=== PATIENT | male | born 1990 | race Caucasian/White ===

== ENCOUNTER 2017-08-06 22:31 | Emergency (ER) | payer SELFPAY ==
[~2017-08-06] VITALS: Ht 165.1 cm; Wt 83.9 kg
--- NOTE | 2017-08-06 22:44 | PHYS DOC ---
Past Medical History Past Medical History: No Pertinent History Past Surgical History: Other Additional Past Surgical Histo: Bilateral wrists. Smokin Pack Per Day Alcohol Use: None Drug Use: None Adult General Chief Complaint Chief Complaint: SORE THROAT HPI HPI Patient is a 27 year old male presents to the emergency department one-week history of sore throat. Reports he has had an intermittent cough. No fever. Really taking foods and fluids. He states today he looked at his throat and he saw white patches and that prompted him to come to the emergency department. Review of Systems Review of Systems Constitutional: Denies fever or chills [] Eyes: Denies change in visual acuity, redness, or eye pain [] HENT: Denies nasal congestion, complain of sore throat Respiratory: Intermittent cough, productive Cardiovascular: No chest pain GI: Denies abdominal pain, nausea, vomiting, bloody stools or diarrhea [] : Denies dysuria or hematuria [] Musculoskeletal: Denies back pain or joint pain [] Integument: Denies rash or skin lesions [] Neurologic: Denies headache, focal weakness or sensory changes [] Endocrine: Denies polyuria or polydipsia [] Allergies Allergies Allergies Coded Allergies Type Severity Reaction Last Updated Verified acetaminophen Adverse Reaction Intermediate Nausea and Vomiting 08/08/14 Yes Physical Exam Physical Exam Constitutional: Well developed, well nourished, no acute distress, non-toxic appearance. [] HENT: Normocephalic, atraumatic, bilateral external ears normal, oropharynx moist, a pharynx with erythema, white exudate left tonsil, nose normal. [] Eyes: PERRLA, EOMI, conjunctiva normal, no discharge. [] Neck: Normal range of motion, no tenderness, supple without lymphadenopathy, no stridor. [] Cardiovascular:Heart rate regular rhythm, no murmur [] Lungs & Thorax: Bilateral breath sounds clear to auscultation [] Skin: Warm, dry, no erythema, no rash. [] Neurologic: Alert and oriented X 3, normal motor function, normal sensory function, no focal deficits noted. [] Current Patient Data Vital Signs Vital Signs Date Time Temp Pulse Resp B/P (MAP) Pulse Ox O2 Delivery O2 Flow Rate FiO2 08/06/17 22:49 98.4 99 16 97 Room Air 98.4 Lab Values Rapid strep negative EKG EKG [] Radiology/Procedures Radiology/Procedures [] Course & Med Decision Making Course & Med Decision Making Pertinent Labs and Imaging studies reviewed. (See chart for details) []Has had a one-month history of cough with development of sore throat. Rapid strep is negative. With the history of cough for 1 month patient will be treated with an antibiotic and allergy medicine. He is follow-up primary care. Patient verbalizes understanding and is stable condition on discharge. Dragon Disclaimer Dragon Disclaimer This electronic medical record was generated, in whole or in part, using a voice recognition dictation system. Departure Departure Impression: Primary Impression: URI (upper respiratory infection) Disposition: HOME, SELF-CARE Condition: STABLE Referrals: NO PCP (PCP) [facility] [place] Patient Instructions: Upper Respiratory Infection, Adult Scripts Fexofenadine Hcl (MARGARET ALLERGY) 180 Mg Tablet 1 TAB PO DAILY, #30 TAB 2 Refills Prov: CARLOS SEGURA APRN 08/06/17 Doxycycline Hyclate (DOXYCYCLINE HYCLATE) 100 Mg Capsule 1 CAP PO BID, #20 CAP Prov: CARLOS SEGURA APRN 08/06/17 Problem Qualifiers Primary Impression: URI (upper respiratory infection) URI type: unspecified URI Qualified Codes: J06.9 - Acute upper respiratory infection, unspecified CARLOS SEGURA APRN Aug 06, 2017 22:44
[2017-08-06 22:49] VITALS: BP 145/85
[2017-08-06] MEDS ORDERED: DOXY100C2 PO (23:13)
[2017-08-06] MEDS ORDERED: FEXO180T81 PO (23:13)
[2017-08-07 10:24] LABS: NEGATIVE OBC STREP NEG; POSITIVE OBC STREP POS
== END 2017-08-06 23:20 | disposition home or self-care (01) ==
LOC: ER 22:31
DX: J06.9 Acute upper respiratory infection, unspecified (principal); F17.200 Nicotine dependence, unspecified, uncomplicated; Z88.6 Allergy status to analgesic agent
CPT/HCPCS: 87070; 87880; 99283

== ENCOUNTER 2019-02-08 08:53 | Emergency (ER) | payer OTHER ==
[~2019-02-08] VITALS: Ht 162.6 cm; Wt 89.2 kg
[~2019-02-08 08:53] MED LIST: DOXY100C2 PO; FEXO180T81 PO
[2019-02-08 08:54] VITALS: BP 137/90
--- NOTE | 2019-02-08 09:40 | PHYS DOC ---
Past Medical History Past Medical History: No Pertinent History (ISACC RIVERS APRN) Past Surgical History: Other Additional Past Surgical Histo: Bilateral wrists. (ISACC RIVERS APRN) Alcohol Use: None Drug Use: None (ISACC RIVERS APRN) Adult General Chief Complaint Chief Complaint: SORE THROAT HPI HPI 28-year-old male presents to ER via POV for complaints of sore throat and nonproductive cough. Patient states his daughter had recent diagnosis of strep throat and his son also has similar illness. He denies fever, N/V/D, SOA, or CP. He denies difficulty swallowing. He reports sxs ongoing for past 2-3 days. Pt is daily smoker. (ISACC RIVERS APRN) Review of Systems Review of Systems Constitutional: Denies fever or chills [] Eyes: Denies change in visual acuity, redness, or eye pain [] HENT: Denies nasal congestion. Reports sore throat Respiratory: Denies shortness of breath. Reports nonprod. cough Cardiovascular: Denies CP/tightness GI: Denies abdominal pain, nausea, vomiting, bloody stools or diarrhea [] : Denies urinary sxs Musculoskeletal: Denies back/neck pain or joint pain [] Integument: Denies rash or skin lesions [] Neurologic: Denies headache, focal weakness or sensory changes [] All other systems were reviewed and found to be within normal limits, except as documented in this note. (ISACC RIVERS APRN) Current Medications Current Medications Current Medications Medications (Trade) Dose Ordered Sig/Eugenia Start Time Stop Time Status Last Admin Dose Admin Penicillin G Benzathine (Bicillin L-A) 1,200,000 unit 1X ONCE 02/08/19 10:15 02/08/19 10:16 DC 02/08/19 10:18 1,200,000 UNIT (ROBB DEVINE MD) Allergies Allergies Allergies Coded Allergies Type Severity Reaction Last Updated Verified acetaminophen Adverse Reaction Intermediate Nausea and Vomiting 08/08/14 Yes (ROBB DEVINE MD) Physical Exam Physical Exam Constitutional: Well developed, well nourished, no acute distress, non-toxic appearance. [] HENT: Normocephalic, atraumatic, bilateral ears normal, oropharynx moist- bilat. tonsillar swelling/erythema- uvula midline, no oral exudates, nose normal. Eyes: Pupils equal, conjunctiva normal, no discharge. [] Neck: Normal range of motion, no tenderness, supple, no stridor/gross adenopathy Cardiovascular: Heart rate regular rhythm, no murmur [] Lungs & Thorax: Bilateral breath sounds clear to auscultation- resp. equal/nonlabored Abdomen: Bowel sounds normal, soft, no tenderness Skin: Warm, dry, no erythema, no rash. [] Back: No tenderness, no CVA tenderness. [] Extremities: No tenderness, no cyanosis, no clubbing, ROM intact, no edema. [] Neurologic: Alert and oriented X 3, normal motor function, normal sensory function, no focal deficits noted. [] Psychologic: Affect normal, judgement normal, mood normal. [] (ISACC RIVERS APRN) Current Patient Data Vital Signs Vital Signs Date Time Temp Pulse Resp B/P (MAP) Pulse Ox O2 Delivery O2 Flow Rate FiO2 02/08/19 08:54 98.5 65 16 137/90 (106) 97 Room Air 98.5 (ROBB DEVINE MD) Lab Values Laboratory Tests Test 02/08/19 09:49 Group A Streptococcus Rapid Positive (NEGATIVE) (ROBB DEVINE MD) Lab Values Laboratory Tests Test 02/08/19 09:49 Group A Streptococcus Rapid Positive (NEGATIVE) (ISACC RIVERS APRN) EKG EKG [] (ISACC RIVERS APRN) Radiology/Procedures Radiology/Procedures [] (ISACC RIVERS APRN) Course & Med Decision Making Course & Med Decision Making Pertinent Labs reviewed. (See chart for details) Patient was evaluated in the ER for complaints of sore throat. Patient had positive strep test and this result was discussed with him. Discussed options for treatment and patient opted for IM injection of Bicillin LA while in the ER. Smoking cessation was discussed with patient. Discussed Tylenol and ibuprofen as needed for pain and fever. Patient has been nontoxic in appearance while in the ER having no difficulty swallowing.Education provided on signs and symptoms to return to ER. Discharge instructions were discussed. Patient to follow-up with primary care physician if symptoms persist or with any concerns. (ISACC RIVERS APRN) Dragon Disclaimer Dragon Disclaimer This electronic medical record was generated, in whole or in part, using a voice recognition dictation system. (ISACC RIVERS APRN) Departure Departure Impression: Primary Impression: Strep throat Disposition: 01 HOME, SELF-CARE Condition: STABLE Referrals: NO PCP (PCP) Patient Instructions: Smoking Cessation, Tips For Success, Strep Throat Additional Instructions: Drink plenty of fluids. Avoid smoking. Tylenol and/or ibuprofen as needed for pain/fever as directed on container. Over the counter throat lozenges/chloraseptic as directed on container as needed. Follow-up with your primary doctor if symptoms persist or with concerns. Attending Signature Attending Signature I have participated in the care of this patient and I have reviewed and agree with all pertinent clinical information above including history, exam, and recommendations. (ROBB DEVINE MD) ISACC RIVERS APRN Feb 08, 2019 09:40 ROBB DEVINE MD Feb 08, 2019 16:03
[2019-02-08] MEDS ORDERED: PENICILLIN G BENZATHINE LA 1,200,000 UNIT/2 ML DISP.SYRIN. IM ONE (10:15)
== END 2019-02-08 10:50 | disposition home or self-care (01) ==
LOC: ER 08:53
DX: J02.0 Streptococcal pharyngitis (principal); B95.0 Streptococcus, group A, as the cause of diseases classified elsewhere; Z88.6 Allergy status to analgesic agent
CPT/HCPCS: 87880; 96372; 99283; J0561

== ENCOUNTER 2019-07-13 21:10 | Emergency (ER) | payer OTHER | END 2019-07-13 23:00 | disposition left against medical advice (07) | LOC: ER 21:10 | DX: R05 Cough (principal); Z53.21 Procedure and treatment not carried out due to patient leaving prior to being seen by health care provider ==

== ENCOUNTER 2019-12-03 04:29 | Emergency (ER) | payer OTHER ==
[~2019-12-03] VITALS: Ht 162.6 cm; Wt 86.0 kg
[2019-12-03 04:38] VITALS: BP 162/104
[2019-12-03] MEDS ORDERED: TETRACAINE 0.5% OPHTH SOLUTION 4ML BOTTLE. OD ONE (05:00)
[2019-12-03] MEDS ORDERED: FLUORESCEIN OPHTH TEST STRIP. OD ONE (05:00)
[2019-12-03] MEDS ORDERED: CIPR2.5D OD (05:15)
[2019-12-03] MEDS ORDERED: OXYC5CAP PO (05:15)
[2019-12-03] MEDS ORDERED: KETO5DRO24 OD (05:15)
--- NOTE | 2019-12-03 05:19 | PHYS DOC ---
Past Medical History Past Medical History: No Pertinent History Past Surgical History: Other Additional Past Surgical Histo: Bilateral wrists. Smoking Status: Current Every Day Smoker Alcohol Use: None Drug Use: None Adult General Chief Complaint Chief Complaint: FOREIGN BODY/EYES HPI HPI 29 yo male presents to the ER with complaints of eye pain. 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 Patient states the pain has progressively gotten worse. Patient has allergy to tylenol, no medical problems. He denies visual changes however complains of eye sensitivity to light. Patient chest pain, SOB, headache, nausea or vomiting. Review of Systems Review of Systems Constitutional: Denies fever or chills [] Eyes: Denies change in visual acuity, + redness/eye pain [] Cardiovascular: No additional information not addressed in HPI [] GI: Denies abdominal pain, nausea, vomiting, bloody stools or diarrhea [] Musculoskeletal: Denies back pain or joint pain [] Neurologic: Denies headache, focal weakness or sensory changes [] All other systems were reviewed and found to be within normal limits, except as documented in this note. Current Medications Current Medications Current Medications Medications (Trade) Dose Ordered Sig/Eugenia Start Time Stop Time Status Last Admin Dose Admin Fluorescein Sodium (Ful-Velma) 1 strip 1X ONCE 12/03/19 05:00 12/03/19 05:01 DC 12/03/19 04:45 1 STRIP Tetracaine HCl (Tetracaine) 1 drop 1X ONCE 12/03/19 05:00 12/03/19 05:01 DC 12/03/19 04:45 1 DROP Allergies Allergies Allergies Coded Allergies Type Severity Reaction Last Updated Verified acetaminophen Adverse Reaction Intermediate Nausea and Vomiting 08/08/14 Yes Physical Exam Physical Exam Constitutional: Well developed, well nourished, acute distress 2/2 eye pain, non-toxic appearance. [] HENT: Normocephalic, atraumatic, bilateral external ears normal, oropharynx moist, no oral exudates, nose normal. [] Eyes: PERRLA, EOMI, conjunctiva normal, no discharge, exam of right eye with fluorescene shows foreign body at 7o'clock [] Cardiovascular:Heart rate regular rhythm, no murmur [] Lungs & Thorax: Bilateral breath sounds clear to auscultation [] Skin: Warm, dry, no erythema, no rash. [] Back: No tenderness, no CVA tenderness. [] Extremities: No tenderness, no edema. [] Neurologic: Alert and oriented X 3, no focal deficits noted. [] Psychologic: Affect normal, judgement normal, mood normal. [] EKG EKG [] Radiology/Procedures Radiology/Procedures [] Course & Med Decision Making Course & Med Decision Making Pertinent Labs and Imaging studies reviewed. (See chart for details) []29 yo male presents to the ER with complaints of eye pain. 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 Patient states the pain has progressively gotten worse. Patient has allergy to tylenol, no medical problems. He denies visual changes however complains of eye sensitivity to light. Patient chest pain, SOB, headache, nausea or vomiting. Evidence of foreign body Tetracaine/Fluorescene used with Wood's Lamp to identify foreign body Gilberto used to remove foreign body with assistance from nursing Patient states pain improved Recommend abx drop upon discharge, po pain medication, ketorolac eye drops for pain Recommend follow up with [facility] in 3 days Visual acuity assessed prior to discharge - see nursing notes (20/30 OD, 20/20 OS, 20/20 Both) Dragon Disclaimer Dragon Disclaimer This electronic medical record was generated, in whole or in part, using a voice recognition dictation system. Departure Departure Impression: Primary Impression: Foreign body of right eye Disposition: HOME, SELF-CARE Condition: IMPROVED Referrals: NO PCP (PCP) Patient Instructions: Eye - Corneal Foreign Body Additional Instructions: Recommend follow up with Optho in 3 days ( Call office for appointment) - Dr. Vergara [phone] Foreign body removed at bedside Ketorolac ophthalmic provided for pain (apply right eye) Ciprofloxacin eye drops for antibiotics (apply right eye) Oxy IR rx x 2 days (systemic po pain medication) Return to ER with worsening pain, visual changes Scripts Ciprofloxacin Hcl (CIPROFLOXACIN HCL) 2.5 Ml Drops 1 DROP OD QID for 7 Days, #5 ML 0 Refills Prov: ROBIN ASCENCIO MD 12/03/19 Oxycodone Hcl (OXYCODONE HCL) 5 Mg Capsule 5 MG PO PRN Q6HRS PRN for PAIN, #6 TAB 0 Refills Prov: ROBIN ASCENCIO MD 12/03/19 Ketorolac Tromethamine (KETOROLAC TROMETHAMINE) 5 Ml Drops 1 DROP OD QID for pain, #5 ML 0 Refills Prov: ROBIN ASCENCIO MD 12/03/19 Problem Qualifiers Primary Impression: Foreign body of right eye Encounter type: initial encounter Qualified Codes: T15.91XA - Foreign body on external eye, part unspecified, right eye, initial encounter ROBIN ASCENCIO MD Dec 03, 2019 05:19
[2019-12-03] MEDS ORDERED: oxyCODONE IR 5 MG TABLET PO ONE (05:30)
[2019-12-03] MEDS ORDERED: KETOROLAC 60 MG/2 ML VIAL. IM ONE (05:30)
== END 2019-12-03 05:23 | disposition home or self-care (01) ==
LOC: ER 04:29
DX: T15.01XA Foreign body in cornea, right eye, initial encounter (principal); F17.200 Nicotine dependence, unspecified, uncomplicated; Z98.890 Other specified postprocedural states; Z88.2 Allergy status to sulfonamides; W45.8XXA Other foreign body or object entering through skin, initial encounter; Y93.89 Activity, other specified; Y92.89 Other specified places as the place of occurrence of the external cause; Y99.8 Other external cause status
CPT/HCPCS: 65220; 96372; 99284; J1885